=== PATIENT | female | born 1980 | race African-American/Black ===

== ENCOUNTER 2019-02-17 21:30 | Emergency (ER) | payer BC ==
[2019-02-17 22:01] VITALS: BP 111/75; PULSE 90; TEMP 99.2; BMI 28.3
--- NOTE | 2019-02-17 22:09 | PDOC ---
History of Present Illness - General Chief Complaint: Bleeding from Anus Stated Complaint: ABDOMINAL PAIN, BLOOD IN STOOL Time Seen by Provider: 02/17/19 21:40 History Source: Patient Exam Limitations: No Limitations - History of Present Illness Initial Comments: 02/17/19 22:50 This is a 38-year-old female who comes in complaining of abdominal discomfort intermittently with some blood streaking of her stool. Patient is concerned that she may have ulcerative colitis. Patient otherwise denies any fever, chills , nausea, vomiting or diarrhea. Patient has her menses now. Patient takes no medications. Allergies: as per nursing notes Past Medical History: none Social history: Lives with family. No smoking. No alcohol. No illicit drugs. Surgical history: None General: No fevers or chills, no weakness, no weight loss HEENT: No change in vision. No sore throat,. No ear pain CardioVascular: no chest discomfort. No shortness of breath Respiratory:No cough, or wheezing. Gastrointestinal: no nausea, vomiting, diarrhea or constipation, No rectal bleeding, + abdominal discomfort + blood on stool. Genitourinary: No dysuria, hematuria, or frequency Musculoskeletal: No joint or muscle pain or swelling Neurologic: No headache, vertigo, dizziness or loss of consciousness Psychiatric: nor depression Skin: No rashes or easy bruising Endocrine: no increased thirst or abnormal weight change Allergic: no skin or latex allergy All other systems reviewed and normal Exam: General: Well-nourished well-developed individual, no acute distress HEENT: Throat: Normal, tonsils normal, no erythema or exudate Neck: Supple, no meningeal signs, no lymphadenopathy Eyes::Pupils equal reactive and round, extraocular motion intact Chest: Nontender to palpation Cardiac: S1-S2 normal, regular rate and rhythm, no murmurs rubs or gallops Respiratory: Lungs clear to auscultation bilateral Abdomen: Soft, nondistended, normal bowel sounds, there is no tenderness on palpation diffusely Stool: rectal vault is empty small amount of stool obtained. Extremities: Warm, dry, no cyanosis, clubbing, or edema Skin: No rashes Neuro: Alert and oriented x3, CN II - XII intact, nonfocal exam with normal strength, normal sensation, normal reflexes, normal gait, Psych: Normal mood and affect Assessment and plan: This is a 38-year-old female who comes in complaining of lower abdominal discomfort and rectal discomfort with some questionable blood streaking the stool. Patient had a rectal exam that had a small amount of stool that was brown and guaiac negative. Patient did not have any abdominal exam on palpation. Patient's CBC was normal with a normal white count Patients urine had + Blood because she has her menses but otherwise no evidence of infection Chemistries were unremarkable Patient discharged home told to follow-up with a GI doctor if symptoms persist 02/17/19 22:51 02/17/19 22:53 Past History - Past Medical History Allergies/Adverse Reactions: Allergies Allergy/AdvReac Type Severity Reaction Status Date / Time No Known Allergies Allergy Unverified 02/17/19 22:38 Home Medications: Ambulatory Orders NK [No Known Home Medication] 02/17/19 COPD: No Other medical history: SPINAL CORD CYST C7-T1 - Suicide/Smoking/Psychosocial Hx Smoking History: Never smoked Hx Alcohol Use: Yes (RARE) Drug/Substance Use Hx: No *Physical Exam - Vital Signs Last Vital Signs Temp Pulse Resp BP Pulse Ox 99.2 F 90 16 111/75 100 02/17/19 21:38 02/17/19 21:38 02/17/19 21:38 02/17/19 21:38 02/17/19 21:38 ED Treatment Course - LABORATORY CBC & Chemistry Diagram: 02/17/19 22:25 02/17/19 22:25 *DC/Admit/Observation/Transfer Diagnosis at time of Disposition: Rectal discomfort - Discharge Dispostion Disposition: HOME Condition at time of disposition: Good Decision to Admit order: No - Referrals Referrals: Kya Ruelas [Primary Care Provider] - - Patient Instructions Additional Instructions: Follow-up with a GI doctor as you may need a colonoscopy to diagnose whether or not you have ulcerative colitis. Return to the emergency department immediately with ANY new, persistent or worsening symptoms. Continue any medications as previously prescribed by your physician. You should follow up with your primary doctor as soon as possible regarding today's emergency department visit. . Please make sure your doctor reviews the results of your emergency evaluation. Thank you for coming to the Emergency Department today for your care. It was a pleasure to see you today. Please note that your evaluation is INCOMPLETE until you follow-up with your doctor. - Post Discharge Activity
[2019-02-17 22:41] LABS: BASO % 0.5 % (0-2.0); EOS % 1.2 % (0-4.5); HEMATOCRIT 32.9 % (32.4-45.2); HEMOGLOBIN 10.7 GM/dl (10.7-15.3); MCH 26.5 pg (25.7-33.7); MCHC 32.4 g/dl (32.0-36.0); MEAN CELL VOLUME 81.9 fl (80-96); MEAN PLT VOLUME 8.8 fl (7.5-11.1); MONO % 9.2 % (3.8-10.2); NEUT % 64.1 % (42.8-82.8); PLATELET COUNT 338 K/MM3 (134-434); RBC 4.02 M/mm3 (3.60-5.2); RDW 14.5 % (11.6-15.6); WHITE BLOOD COUNT 9.3 K/mm3 (4.0-10.8)
[2019-02-17 22:54] LABS: ALBUMIN 4.1 g/dl (3.4-5.0); ALK PHOS 55 U/L (45-117); ANION GAP 7 MMOL/L (8-16); BILIRUBIN,TOTAL 0.6 mg/dl (0.2-1); BLOOD UREA NITROGEN 12 mg/dl (7-18); CALCIUM 9.3 mg/dl (8.5-10); CHLORIDE 101 mmol/L (98-107); CO2 28 mmol/L (21-32); CREATININE 0.7 mg/dl (0.55-1.3); GLUCOSE,RANDOM 105 mg/dl (74-106); POTASSIUM 3.2 mmol/L (3.5-5.1); SGOT/AST 18 U/L (15-37); SGPT/ALT 11 U/L (13-61); SODIUM 136 mmol/L (136-145); TOT PROT 7.9 g/dl (6.4-8.2)
[2019-02-17] MEDS ORDERED: POTASSIUM CHLORIDE TABS 20 MEQ TABLET.ER (FP) PO ONE ×2 (23:02→23:03)
[2019-02-18 00:13] LABS: LIPASE 133 U/L (73-393)
== END 2019-02-17 23:07 | disposition home or self-care (01) ==
LOC: FER 21:30
DX: K62.89 Other specified diseases of anus and rectum (principal)
CPT/HCPCS: 36415; 80053; 81003; 81015; 82272; 83690; 85025; 99283-25